=== PATIENT | male | born 1955 | race Caucasian/White ===

== ENCOUNTER 2017-01-19 08:27 | Observation (INO) | payer OTHER ==
[~2017-01-19] VITALS: Ht 175.3 cm; Wt 125.0 kg
[2017-01-19] MEDS ORDERED: LISI-170 PO (08:44)
[2017-01-19] MEDS ORDERED: LEVO88TA4 PO (08:44)
[2017-01-19 08:59] LABS: HEMATOCRIT 53.8 % (39.2-51.8); HEMOGLOBIN 18.4 g/dL (13.7-18.0); WHITE BLOOD COUNT 10.9 x10^3/uL (3.4-10)
[2017-01-19 09:11] LABS: ASPARTATE AMINO TRANSFERASE 11 U/L (15-37); BLOOD UREA NITROGEN 14 mg/dL (7-18)
[2017-01-19 09:28] LABS: ACETAMINOPHEN < 2 mcg/mL (10-30)
[2017-01-19] MEDS ORDERED: ZIPRASIDONE 20 MG INJ IM ONE ×4 (11:00→14:30)
[2017-01-19 17:50] LABS: DAU SCREEN DISCLAIMER
[2017-01-20] MEDS ORDERED: ZIPRASIDONE 20 MG INJ IM PRN (02:00)
[2017-01-20 02:12] VITALS: BP 155/104
[2017-01-20] MEDS ORDERED: LORazepam 1MG TABLET PO ONE (03:00)
[2017-01-20 07:03] VITALS: BP 144/96
[2017-01-20] MEDS ORDERED: LEVOTHYROXINE 88 MCG TABLET PO SCH (09:00)
[2017-01-20] MEDS ORDERED: BENZTROPINE 1 MG TABLET PO SCH (09:00)
[2017-01-20] MEDS ORDERED: LISINOPRIL 20 MG TABLET PO SCH (10:00)
== END 2017-01-20 10:35 ==
LOC: ED 08:59 → 3E 01-20 01:22 → SUATTDRO 01-20 01:27 → 3E 01-20 02:00
PROVIDERS: ADMIT Student in an Organized Health Care Education/Training Program; ATTEND Student in an Organized Health Care Education/Training Program
DX: F23 Brief psychotic disorder (principal); E03.9 Hypothyroidism, unspecified; I10 Essential (primary) hypertension; F31.9 Bipolar disorder, unspecified; F17.210 Nicotine dependence, cigarettes, uncomplicated; E11.9 Type 2 diabetes mellitus without complications; I48.91 Unspecified atrial fibrillation; B20 Human immunodeficiency virus [HIV] disease; Z95.5 Presence of coronary angioplasty implant and graft
CPT/HCPCS: 36415; 80053; 80307; 80329; 81003; 84439; 84443; 85025; 93005; 96372; 99285; G0378; J3486; G0479; G0480